=== PATIENT | male | born 1995 | race Caucasian/White ===

== ENCOUNTER 2021-02-15 02:38 | Emergency (ER) | payer BC ==
--- NOTE | 2021-02-15 02:44 | ERPHSYRPT ---
- History of Present Illness Time Seen by Provider: 02/15/21 02:44 Source: patient Exam Limitations: no limitations Physician History: This is a 25-year-old white male who has no history of migraine headaches but presents with intermittent headache over the last week. It started with what he thought was just a hangover headache approximately 1 week ago. Since then his pain has returned intermittently. Per his report, he has not had a fever. He denies chills. He has no chest pain he has no shortness of breath. He denies any head injury. He has never had anything like this before in the past. This morning, the pain, described as sharp deep pain behind his left eye, returned suddenly and woke him up out of his sleep. He has been intermittently nauseated but no vomiting. He has had no diarrhea. He denies neck pain Quality: sharpness, stabbing Head Pain Location: frontal Severity of Pain-Max: moderate (Left side) Severity of Pain-Current: moderate Recent Head Trauma: no recent headache/trauma Modifying Factors: Improves With: exposure to light, noise Associated Symptoms: dizziness Previous symptoms: no prior history Allergies/Adverse Reactions: No Known Drug Allergies Allergy (Unverified 02/15/21 02:42) Travel Risk - International Travel Have you traveled outside of the country in past 3 weeks: No - Coronavirus Screening Are you exhibiting any of the following symptoms?: No Close contact with a COVID-19 positive Pt in past 14-21 Days: No - Vaccine Status Have you recieved a Covid-19 vaccination: No - Review of Systems Constitutional: No Symptoms Eyes: No Symptoms Ears, Nose, & Throat: No Symptoms Respiratory: No Symptoms Cardiac: No Symptoms Abdominal/Gastrointestinal: No Symptoms Genitourinary Symptoms: No Symptoms Musculoskeletal: No Symptoms Skin: No Symptoms Neurological: No Symptoms Psychological: No Symptoms Endocrine: No Symptoms Hematologic/Lymphatic: No Symptoms Immunological/Allergic: No Symptoms All Other Systems: Reviewed and Negative - Past Medical History Pertinent Past Medical History: No - Past Surgical History Past Surgical History: Yes - Nursing Vital Signs Nursing Vital Signs: Initial Vital Signs Temperature 97.6 F 02/15/21 02:39 Pulse Rate 68 02/15/21 02:39 Respiratory Rate 16 02/15/21 02:39 Blood Pressure 127/74 02/15/21 02:39 O2 Sat by Pulse Oximetry 99 02/15/21 02:39 Pain Scale Pain Intensity 9 - Physical Exam General Appearance: mild distress, alert, anxiety Eye Exam: PERRL/EOMI, eyes nml inspection Ears, Nose, Throat Exam: normal ENT inspection, moist mucous membranes Neck Exam: normal inspection, non-tender, supple, full range of motion Respiratory Exam: airway intact, No chest tenderness, No respiratory distress Gastrointestinal/Abdominal Exam: No tenderness Extremity Exam: normal inspection, normal range of motion, pelvis stable Mental Status Exam: alert, oriented x 3, 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, normal speech, PERRL, tongue midline Coordination/Gait Exam: normal finger to nose, normal gait, normal cerebellar function Motor/Sensory Exam: no motor deficit, no sensory deficit, no pronator drift Skin Exam: normal color, warm, dry Lymphatic Exam: No adenopathy O2 Delivery: Room Air Ordered Tests: Active Orders 24 hr Category Date Time Status HEAD WITHOUT CONTRAST [CT] Stat Exams 02/15/21 02:49 Taken Medication Summary Discontinued Medications Generic Name Dose Route Start Last Admin Trade Name Roman PRN Reason Stop Dose Admin Diphenhydramine HCl 25 mg 02/15/21 02:51 02/15/21 03:08 Benadryl 25 Mg Capsule PO 02/15/21 02:52 25 mg STAT ONE Administration Diphenhydramine HCl Confirm 02/15/21 03:06 Benadryl 25 Mg Capsule Administered 02/15/21 03:07 Dose 25 mg .ROUTE .STK-MED ONE Hydromorphone HCl 1 mg 02/15/21 02:50 02/15/21 03:09 Hydromorphone 1 Mg/Ml Injection IM 02/15/21 02:51 1 mg STAT ONE Administration Hydromorphone HCl Confirm 02/15/21 03:06 Hydromorphone 1 Mg/Ml Injection Administered 02/15/21 03:07 Dose 1 mg .ROUTE .STK-MED ONE Ketorolac Tromethamine 60 mg 02/15/21 02:50 02/15/21 03:08 Toradol 30 Mg Injection IM 02/15/21 02:51 60 mg STAT ONE Administration Ketorolac Tromethamine Confirm 02/15/21 03:05 Toradol 30 Mg Injection Administered 02/15/21 03:06 Dose 60 mg .ROUTE .STK-MED ONE Ondansetron HCl 4 mg 02/15/21 02:51 02/15/21 03:08 Zofran Odt 4 Mg PO 02/15/21 02:52 4 mg STAT ONE Administration Ondansetron HCl Confirm 02/15/21 03:05 Zofran Odt 4 Mg Administered 02/15/21 03:06 Dose 4 mg .ROUTE .STK-MED ONE - Progress Progress: improved, re-examined Air Movement: good Progress Note: 02/15/21 04:07 Cat scan of the head without contrast shows no acute intracranial abnormality. Blood Culture(s) Obtained: No Antibiotics given: No Counseled pt/family regarding: diagnosis, need for follow-up, rad results - Departure Departure Disposition: Home Clinical Impression: Headache Condition: Stable Critical Care Time: No Additional Instructions: Drink plenty of fluids. Use Tylenol and ibuprofen for pain control. Follow-up with your primary care physician for further management. Prescriptions: Ondansetron ODT 4 MG [Zofran Odt 4 mg] 4 mg PO Q6H PRN PRN #10 tab.rapdis PRN Reason: Vomiting
[2021-02-15] MEDS ORDERED: Hydromorphone 1 mg/ml Injection IM ONE (02:50)
[2021-02-15] MEDS ORDERED: TORAdol 30 mg Injection IM ONE (02:50)
[2021-02-15] MEDS ORDERED: BENADRYL 25 MG CAPSULE PO ONE (02:51)
[2021-02-15] MEDS ORDERED: ZOFRAN ODT 4 MG PO ONE (02:51)
[2021-02-15] MEDS ORDERED: ZOFRAN ODT 4 MG ONE (03:05)
[2021-02-15] MEDS ORDERED: TORAdol 30 mg Injection ONE (03:05)
[2021-02-15] MEDS ORDERED: Hydromorphone 1 mg/ml Injection ONE (03:06)
[2021-02-15] MEDS ORDERED: BENADRYL 25 MG CAPSULE ONE (03:06)
[2021-02-15 04:43] VITALS: BP 96/53; PULSE 62; O2SAT 97
--- NOTE | 2021-02-15 08:25 | XRAY ---
Indication: Headache. Multiple contiguous axial images obtained through the head without contrast. Comparison: None Normal appearing brain parenchyma, ventricles, and bony calvarium. Visualized paranasal sinuses and mastoid air cells are clear. Impression: Normal CT head without contrast exam. Comment: Preliminary interpretation was made by [facility]. No critical discrepancy.
== END 2021-02-15 04:40 | disposition home or self-care (01) ==
LOC: MERGE 02:38 → ED 02:38
DX: R51.9 Headache, unspecified (principal)
CPT/HCPCS: 70450; 96372; 99284; J1170; J1885; Q0162; A9270-GY

== ENCOUNTER 2023-08-22 12:11 | Emergency (ER) | payer BC ==
[2023-08-22 12:37] VITALS: TEMP 96
[2023-08-22] MEDS ORDERED: XYLOCAINE 1% HCL 20 ML MDV IJ ONE (12:43)
[2023-08-22] MEDS ORDERED: Adacel Vial IM ONE ×2 (12:44→12:48)
[2023-08-22] MEDS ORDERED: BACIGUENT PACKET TP ONE (13:03)
[2023-08-22] MEDS ORDERED: BACIGUENT PACKET ONE (13:04)
[2023-08-22 13:19] VITALS: BP 126/76; PULSE 70; RESP 16
[2023-08-22] MEDS ORDERED: XYLOCAINE 1% HCL 20 ML MDV ONE (13:20)
[2023-08-22 13:21] VITALS: O2SAT 97
--- NOTE | 2023-08-22 13:21 | ERPHSYRPT ---
- History of Present Illness Time Seen by Provider: 08/22/23 12:22 Source: patient Exam Limitations: no limitations Patient Subjective Stated Complaint: cut thumb while stripping copper wire 10 minutes prior to arrival Triage Nursing Assessment: Pt presents to ED bed 9 ambulatory. A &OX3, answers questions appropriately. Vitals stable. Has left thumb wrapped in paper towel. 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 Paper towel removed. Approximatley 2.5cm laceration to medial L thumb. ROM intact to thumb, pt able to bend thumb at the knuckle. Cap refill <3 seconds. No bleeding to laceration. Denies any other injury. Physician History: 28 years old right-handed dominant male presented in the ER with chief complaint of laceration to the left thumb pulp area with sharp clean blade he was stripping copper wires and accidentally slipped. This happened almost 15 minutes ago with dull aching to sharp pain. There was bleeding initially, better with applying pressure. No numbness or tingling in tip area. Unsure about tetanus status. 2.5 cm laceration left anterolateral thumb distal phalanx with minimal oozing. Intact range of motion at interphalangeal joint. Cap refill less than 2 seconds. Wound is thoroughly cleaned under local anesthesia and laceration is repaired. Tetanus is updated. It was a clean wound, do not think needs antibiotics. Recommended Tylenol/ibuprofen and outpatient follow-up. Suture removal in 10 to 14 days. Discussed signs symptoms of infection needing return to ER which she seems understanding. Stable for discharge. Allergies/Adverse Reactions: Sulfa (Sulfonamide Antibiotics) Allergy (Verified 08/22/23 12:37) unknown reaction Home Medications: No Home Meds [No Home Meds] 0 04/02/13 [History] Hx Tetanus, Diphtheria Vaccination/Date Given: No Hx Influenza Vaccination/Date Given: Yes Travel Risk - International Travel Have you traveled outside of the country in past 3 weeks: No - Coronavirus Screening Are you exhibiting any of the following symptoms?: No - Vaccine Status Have you recieved a Covid-19 vaccination: No - Review of Systems Constitutional: No Symptoms Ears, Nose, & Throat: No Symptoms Respiratory: No Symptoms Abdominal/Gastrointestinal: No Symptoms Musculoskeletal: Injury Skin: Skin Lesions Neurological: No Symptoms Psychological: No Symptoms - Past Medical History Pertinent Past Medical History: No GI Medical History: Other Other Medical History: Torn right ACL, 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 - Past Surgical History Past Surgical History: Yes Musculoskeletal: Orthopedic Surgery Other Surgical History: Ureter dilation - Social History Smoking Status: Never smoker Exposure to second hand smoke: No Drug Use: none Patient Lives Alone: No - Nursing Vital Signs Nursing Vital Signs: Initial Vital Signs Temperature 96.0 F 08/22/23 12:24 Pulse Rate 83 08/22/23 12:24 Respiratory Rate 14 08/22/23 12:24 Blood Pressure 125/76 08/22/23 12:24 O2 Sat by Pulse Oximetry 97 08/22/23 12:24 Pain Scale Pain Intensity 0 - Physical Exam General Appearance: no apparent distress Eye Exam: PERRL/EOMI Neck Exam: normal inspection, full range of motion Respiratory Exam: normal breath sounds, lungs clear Cardiovascular Exam: regular rate/rhythm, normal heart sounds Extremity Exam: normal range of motion, lacerations (2.5 cm laceration left thumb distal phalanx with minimal oozing. Superficial. No obvious tendon injury noticed.) Neurologic Exam: alert, oriented x 3, cooperative Skin Exam: normal color SpO2 Interpretation: normal SpO2: 97 O2 Delivery: Room Air Procedures - Laceration/Wound Repair Left Finger Time of Procedure: 13:00 Wound Location: Left, hand Wound Length (cm): 2.5 Wound's Depth, Shape: superficial Wound Explored: clean Irrigated: Yes Hibiclens Prep: Yes Anesthesia: 1% Lidocaine Volume Anesthetic (ccs): 3 Wound Repaired With: sutures Suture Size/Type: 4-0, ethilon Number of Sutures: 6 Layer Closure?: No Sterile Dressing Applied?: Yes Splint Applied?: Yes Type of Splint Applied: Tube gauze Sling Applied?: No Ordered Tests: Active Orders 24 hr Category Date Time Status Prepare for Sutures STAT Care 08/22/23 12:48 Active Sutures STAT Care 08/22/23 12:48 Active Medication Summary Discontinued Medications Generic Name Dose Route Start Last Admin Trade Name Freq PRN Reason Stop Dose Admin Bacitracin Zinc 0.9 each 08/22/23 13:03 08/22/23 13:05 Bacitracin Packet 1 Each Pckt TP 08/22/23 13:04 0.9 each STAT ONE Administration Bacitracin Zinc Confirm 08/22/23 13:04 Bacitracin Packet 1 Each Pckt Administered 08/22/23 13:05 Dose 1 each .ROUTE .STK-MED ONE Diphtheria/Tetanus/Acell Pertussis 0.5 ml 08/22/23 12:44 08/22/23 12:50 Tdap --Diph,Pertuss(Acell),Tet Vac/Pf 0.5 Ml Vial IM 08/22/23 12:45 0.5 ml .ONCE ONE Administration Diphtheria/Tetanus/Acell Pertussis Confirm 08/22/23 12:48 Tdap --Diph,Pertuss(Acell),Tet Vac/Pf 0.5 Ml Vial Administered 08/22/23 12:49 Dose 0.5 ml IM .STK-MED ONE Lidocaine HCl 5 ml 08/22/23 12:43 08/22/23 12:46 Lidocaine Hcl 1% 20 Ml Mdv 20 Ml Ml IJ 08/22/23 12:44 5 ml STAT ONE Administration - Progress Progress: improved Progress Note: 08/22/23 13:20 28 years old right-handed dominant male presented in the ER with chief complaint of laceration to the left thumb pulp area with sharp clean blade he was stripping copper wires and accidentally slipped. This happened almost 15 minutes ago with dull aching to sharp pain. There was bleeding initially, better with applying pressure. No numbness or tingling in tip area. Unsure about tetanus status. 2.5 cm laceration left anterolateral thumb distal phalanx with minimal oozing. Intact range of motion at interphalangeal joint. Cap refill less than 2 seconds. Wound is thoroughly cleaned under local anesthesia and laceration is repaired. Superficial injury, do not think needs imaging tetanus is updated. It was a clean wound, do not think needs antibiotics. Recommended Tylenol/ibuprofen and outpatient follow-up. Suture removal in 10 to 14 days. Discussed signs symptoms of infection needing return to ER which she seems understanding. Stable for discharge. 08/22/23 13:20 Counseled pt/family regarding: diagnosis, need for follow-up Medical Desision Making - Risk of complications The pt has a mod risk of morbidity or mortality based on: Need for minor surgical intervention in patient with know risk factors - Departure Departure Disposition: Home Clinical Impression: Thumb laceration Condition: Stable Critical Care Time: No Referrals: GUICHO DUEÑAS [Primary Care Provider] - Follow up with PCP 1 day Instructions: Laceration Repair With Stitches (DC) Additional Instructions: Take Tylenol/ibuprofen as needed for pain. Follow-up with primary care for reevaluation. Return to ER for intractable pain swelling redness/fever chills etc.
== END 2023-08-22 13:27 | disposition home or self-care (01) ==
LOC: ED 12:11
DX: S61.012A Laceration without foreign body of left thumb without damage to nail, initial encounter (principal); W26.0XXA Contact with knife, initial encounter; Z28.310 Unvaccinated for COVID-19; Z23 Encounter for immunization
CPT/HCPCS: 12001; 90471; 90715; 99283; A9270-GY